=== PATIENT | female | born 1950 | race Caucasian/White ===

== ENCOUNTER 2017-10-11 08:08 | Day surgery (SDC) | payer MEDICARE, OTHER ==
[2017-10-11] MEDS ORDERED: fentaNYL 100 MCG/2 ML SDV IV ONE (08:09)
[2017-10-11] MEDS ORDERED: Propofol 200 MG/20 ML SDV IV ONE (08:09)
[2017-10-11] MEDS ORDERED: Midazolam 1 MG/ML 2 ML SDV IV ONE (08:09)
[2017-10-11] MEDS ORDERED: Sodium Chloride 0.9% 5 ML Syringe FLUSH PRN (09:00)
[2017-10-11] MEDS ORDERED: Lactated Ringers 1,000 ML IV SCH (09:00)
[2017-10-11] MEDS ORDERED: Midazolam 1 MG/ML 2 ML SDV ONE (09:01)
[2017-10-11] MEDS ORDERED: Propofol 200 MG/20 ML SDV ONE ×3 (09:01→09:43)
[2017-10-11] MEDS ORDERED: fentaNYL 100 MCG/2 ML SDV ONE (09:01)
[2017-10-11] MEDS ORDERED: EPINEPHrine 1:10,000 1 MG/10 ML Syringe ONE (09:02)
--- NOTE | 2017-10-11 10:30 | PCM.OPNOTE ---
- General Post-Op/Procedure Note Date of Surgery/Procedure: 10/11/17 Operative Procedure(s): Colonoscopy with polypectomy 2 Anesthesia Technique: MAC Primary Surgeon: Ravinder Giron Complications: None Condition: Good Free Text/Narrative:: INFORMED CONSENT: Patient is here today for elective colonoscopy. All aspects of this procedure have been discussed with the patient. All possible complications also, including possibility of perforation, infection, pain, bleeding and unknown complications. In the event of perforation patient may need to have abdominal exploration, colon resection, colostomy and even was discussed. Anesthetic complications were handled by anesthesia department. The patient understands fully well. Patient did not have any further questions for me at the end of my interview. The patient wishes for me to proceed. PREOPERATIVE DIAGNOSIS/INDICATIONS: [Positive FIT test] POSTOPERATIVE DIAGNOSIS: [2 polyps identified at the cecum.] INSTRUMENT USED: Olympus videocolonoscope. ASA CLASSIFICATION: [2] ANESTHESIA: Continuous EKG, oximetry and intermittent blood pressure and respiratory monitoring were performed throughout the procedure. IV Versed and Fentanyl were administered. PROCEDURE PERFORMED: Colonoscopy POSITIONS OF PATIENT: Left lateral. RECTUM: Normal. SIGMOID COLON: Normal. DESCENDING COLON: Normal. SPLENIC FLEXURE: Normal. TRANSVERSE COLON: Normal. HEPATIC FLEXURE: Normal. ASCENDING COLON: Normal. CECUM: 2 small polyps were identified and removed using the hot biopsy forceps. A resolution clip was also placed on the far distal polyp for hemostasis.. ILEOCECAL VALVE: Normal. BIOPSY: None. TOLERANCE: Excellent. COMPLICATIONS: None. Final diagnosis: 2 small polyps of the cecum. Otherwise negative colonoscopy.
== END 2017-10-11 12:25 | disposition home or self-care (01) ==
LOC: KA.SDS 08:08
PROVIDERS: ATTEND Family Medicine
DX: K63.5 Polyp of colon (principal); F41.9 Anxiety disorder, unspecified; J45.40 Moderate persistent asthma, uncomplicated; E78.00 Pure hypercholesterolemia, unspecified; F32.9 Major depressive disorder, single episode, unspecified; Z88.0 Allergy status to penicillin; Z88.1 Allergy status to other antibiotic agents; Z79.899 Other long term (current) drug therapy
CPT/HCPCS: 00810; 45384; J2250; J2704; J3010; J7120; 88305

== ENCOUNTER 2017-10-16 19:09 | Emergency (ER) | payer MEDICARE, OTHER ==
[2017-10-16] MEDS ORDERED: methylPREDNISolone Sodium Succinate 125 MG/2 ML SDV IVPUSH ONE (19:33)
[2017-10-16] MEDS ORDERED: diphenhydrAMINE 50 MG/ML SDV IVPUSH ONE (19:33)
[2017-10-16] MEDS ORDERED: Acetaminophen 500 MG Tab PO ONE ×2 (19:33→20:28)
[2017-10-16] MEDS ORDERED: Famotidine 20 MG/2 ML SDV IVPUSH ONE (19:33)
--- NOTE | 2017-10-16 19:33 | EDM.PDOC ---
ED HPI GENERAL MEDICAL PROBLEM - General Chief Complaint: Allergic Reaction Stated Complaint: ALLERGIC REACTION Time Seen by Provider: 10/16/17 19:21 Source of Information: Reports: Patient History Limitations: Reports: No Limitations - History of Present Illness INITIAL COMMENTS - FREE TEXT/NARRATIVE: 67 YO WF presents to ER with suspected allergic reaction from self medicating with erythromycin. Pt reports she was feeling run down with cough, congestion and fever so she took some erythromycin she has at the house. Pt reports waking at 2am with facial swelling and itchy eyes. Pt took benadryl all day today with minimal improvement prompting ER evaluation. Pt denies shortness of breath, dysphasia, nausea/vomiting or dizziness. Pt with temp of 102 in ER Onset: Today Onset Date: 10/16/17 Onset Time: 02:00 Location: Reports: Face Quality: Reports: Burning Severity: Mild Improves with: Reports: None Worsens with: Reports: None Associated Symptoms: Reports: No Other Symptoms, Cough, Fever/Chills, Rash. 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) - Related Data Allergies Allergy/AdvReac Type Severity Reaction Status Date / Time azithromycin [From Zithromax] Allergy Anaphylactic Verified 10/11/17 08:25 Shock Penicillins Allergy Anaphylactic Verified 10/11/17 08:25 Shock Home Meds: Home Meds ALPRAZolam [Xanax] 0.25 mg PO BEDTIME 10/10/17 [History] Budesonide/Formoterol Fumarate [Symbicort 160-4.5 Mcg Inhaler] 2 puff IH BID [History] EPINEPHrine [Epipen] 0.3 mg IM ASDIRECTED PRN 10/10/17 [History] Ibuprofen [Advil] 600 mg PO DAILY PRN 10/10/17 [History] Triamcinolone Acetonide [Triamcinolone Acetonide 0.1% Crm] 15 gm TOP BID [History] Vitamin B Complex [B Complex] 1 each PO DAILY 10/10/17 [History] buPROPion [Wellbutrin XL] 150 mg PO DAILY 10/10/17 [History] Famotidine [Pepcid] 20 mg PO BID #20 tablet 10/16/17 [Rx] RX: Prednisone [IJD: predniSONE] 20 mg PO WITHBREAKFAST #15 tab 10/16/17 [Rx] Past Medical History - Past Health History Medical/Surgical History: Denies Medical/Surgical History Respiratory History: Reports: Asthma Genitourinary History: Reports: UTI, 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: Psychiatric History: Reports: Anxiety, Depression - Infectious Disease History Infectious Disease History: Reports: Chicken Pox, Measles, Mumps - Past Surgical History GI Surgical History: Reports: Appendectomy Social & Family History - Family History Cardiac: Reports: Hypertension, Pacemaker - Tobacco Use Smoking Status *Q: Never Smoker - Caffeine Use Caffeine Use: Reports: Soda - Recreational Drug Use Recreational Drug Use: No ED ROS ALLERGIC REACTION - Review of Systems Review Of Systems: See Below Constitutional: Reports: Fever, Chills HEENT: Reports: Rhinitis Respiratory: Reports: No Symptoms Cardiovascular: Reports: No Symptoms Endocrine: Reports: No Symptoms GI/Abdominal: Reports: No Symptoms : Reports: No Symptoms Musculoskeletal: Reports: No Symptoms Skin: Reports: Erythema Neurological: Reports: No Symptoms Psychiatric: Reports: No Symptoms Hematologic/Lymphatic: Reports: No Symptoms Immunologic: Reports: No Symptoms ED EXAM GENERAL NO PERIP PULSE - Physical Exam Exam: See Below Exam Limited By: No Limitations General Appearance: Alert, WD/WN, No Apparent Distress Ears: Normal External Exam, Normal Canal, Hearing Grossly Normal, Normal TMs Nose: Clear Rhinorrhea Throat/Mouth: Normal Inspection, Normal Lips, Normal Teeth, Normal Gums, Normal Oropharynx, Normal Voice, No Airway Compromise Head: Atraumatic, Normocephalic Neck: Normal Inspection, Supple, Non-Tender, Full Range of Motion, Lymphadenopathy (L), Lymphadenopathy (R) Respiratory/Chest: No Respiratory Distress, Lungs Clear, Normal Breath Sounds, No Accessory Muscle Use, Chest Non-Tender Cardiovascular: Normal Peripheral Pulses, Regular Rate, Rhythm, No Edema, No Gallop, No JVD, No Murmur, No Rub GI/Abdominal: Normal Bowel Sounds, Soft, Non-Tender, No Organomegaly, No Distention, No Abnormal Bruit, No Mass Back Exam: Normal Inspection, Full Range of Motion, NT Extremities: Normal Inspection, Normal Range of Motion, Non-Tender, Normal Capillary Refill, No Pedal Edema Neurological: Alert, Oriented, CN II-XII Intact, Normal Cognition, Normal Gait, Normal Reflexes, No Motor/Sensory Deficits Psychiatric: Normal Affect, Normal Mood Skin Exam: Erythema (around eyes), Rash Course - Vital Signs Last Recorded V/S: Last Vital Signs Temp 39.2 C H 10/16/17 19:52 Pulse 88 10/16/17 19:20 Resp 20 10/16/17 19:20 BP 163/85 H 10/16/17 19:20 Pulse Ox 97 10/16/17 19:20 - Orders/Labs/Meds Orders: Active Orders 24 hr Category Date Time Status Acetaminophen [Tylenol Extra Strength] Med 10/16/17 20:28 Once 1,000 mg PO ONETIME ONE Medication Orders Acetaminophen (Tylenol Extra Strength) 1,000 mg PO ONETIME ONE Stop: 10/16/17 20:29 Meds: Medications Generic Name Dose Route Start Last Admin Trade Name Freq PRN Reason Stop Dose Admin Acetaminophen 1,000 mg 10/16/17 20:28 Tylenol Extra Strength PO 10/16/17 20:29 ONETIME ONE Discontinued Medications Generic Name Dose Route Start Last Admin Trade Name Freq PRN Reason Stop Dose Admin Acetaminophen 1,000 mg 10/16/17 19:33 10/16/17 19:52 Tylenol Extra Strength PO 10/16/17 19:34 1,000 mg ONETIME ONE Administration Diphenhydramine HCl 50 mg 10/16/17 19:33 10/16/17 19:58 Benadryl IVPUSH 10/16/17 19:34 50 mg ONETIME ONE Administration Famotidine 20 mg 10/16/17 19:33 10/16/17 20:24 Pepcid IVPUSH 10/16/17 19:34 20 mg ONETIME ONE Administration Methylprednisolone Sodium Succinate 125 mg 10/16/17 19:33 10/16/17 19:53 Solu-Medrol IVPUSH 10/16/17 19:34 125 mg ONETIME ONE Administration Departure - Departure Time of Disposition: 20:29 Disposition: Home, Self-Care 01 Condition: Good Clinical Impression: Viral upper respiratory infection Allergic reaction Qualifiers: Encounter type: initial encounter Qualified Code(s): T78.40XA - Allergy, unspecified, initial encounter - Discharge Information Prescriptions: Famotidine [Pepcid] 20 mg PO BID #20 tablet RX: Prednisone [IJD: predniSONE] 20 mg PO WITHBREAKFAST #15 tab Referrals: Ravinder Giron MD [Primary Care Provider] - Forms: ED Department Discharge - My Orders Last 24 Hours: My Active Orders 10/16/17 20:28 Acetaminophen [Tylenol Extra Strength] 1,000 mg PO ONETIME ONE - Assessment/Plan Last 24 Hours: My Active Orders 10/16/17 20:28 Acetaminophen [Tylenol Extra Strength] 1,000 mg PO ONETIME ONE Assessment:: 1. Viral URI 2. Fever 3. Acute allergic reaction Plan: 1. prednisone 60mg PO QD x 5 days 2. Benadryl 50mg PO Q6 3. pepcid 20mg PO BID 4. tylenol/motrin for fever 5. follow up in clinic for recheck 6. return to ER for worsening symptoms
== END 2017-10-16 20:55 | disposition home or self-care (01) ==
LOC: KA.ED 19:09
DX: J06.9 Acute upper respiratory infection, unspecified (principal); R22.0 Localized swelling, mass and lump, head; R21 Rash and other nonspecific skin eruption; T36.3X5A Adverse effect of macrolides, initial encounter; Z88.1 Allergy status to other antibiotic agents; Z88.0 Allergy status to penicillin; Z79.899 Other long term (current) drug therapy
CPT/HCPCS: 96374; 96375; 99283; A9270; J1200; J2930; S0028

== ENCOUNTER 2022-03-17 01:45 | Emergency (ER) | payer MEDICARE, OTHER ==
[2022-03-17] MEDS: Aspirin 81 MG Tab.Chew PO ONE (02:05)
[2022-03-17] MEDS: Nitroglycerin 2% Oint 1 GM UD Packet TOP ONE (02:06)
[2022-03-17] MEDS: Nitroglycerin 2% Oint 1 GM UD Packet ONE (02:10)
[2022-03-17 02:24] LABS: ANION GAP 13.8 mmol/L (5-15); CHLORIDE,CL 102 mmol/L (98-107); SODIUM,NA 142 mmol/L (136-145)
[2022-03-17] MEDS: Sodium Chloride 0.9% 10 ML Syringe FLUSH PRN (02:25)
[2022-03-17] MEDS: Alum Hydrox/Mag Hydrox/Simeth 30 ML, Lidocaine 2% 15 ML PO ONE ×2 (02:46)
[2022-03-17 03:01] VITALS: BP 151/79; PULSE 74
== END 2022-03-17 03:10 | disposition home or self-care (01) ==
LOC: SUPCPDRO 01:45 → KA.ED 01:45
DX: R07.89 Other chest pain (principal); K21.00 Gastro-esophageal reflux disease with esophagitis, without bleeding; Z90.49 Acquired absence of other specified parts of digestive tract; Z79.899 Other long term (current) drug therapy; Z88.0 Allergy status to penicillin; Z88.1 Allergy status to other antibiotic agents
CPT/HCPCS: 36415; 71046; 80053; 84484; 85025; 93005; 99285; A9270; J3490; 93010; 99284